=== PATIENT | female | born 1945 | race American Indian/Alaskan Native ===

== ENCOUNTER 2021-01-11 17:34 | Emergency (ER) | payer MEDICARE ==
--- NOTE | 2021-01-11 18:15 | Emergency Department Report ---
Blank Doc - Documentation Documentation: 75-year-old female that presents with hyperglycemia. 1- This initial assessment/diagnostic orders/clinical plan/ treatment(s) is/are subject to change based on pt's health status, clinical progression and re- assessment by fellow clinical providers in the ED. Further treatment and workup at subsequent clinical provers discretion. Patient/guardians urged not to elope from ED as their condition may be serious if not clinically assessed and managed. 2-labs 3-UA
[2021-01-11 18:33] LABS: Basophils # (Auto) 0.1 K/mm3 (0.0-0.1); Basophils % (Auto) 0.8 % (0.0-1.8); Eosinophils # (Auto) 0.1 K/mm3 (0.0-0.4); Eosinophils % (Auto) 1.2 % (0.0-4.3); Hematocrit 38.8 % (30.3-42.9); Hemoglobin 12.9 gm/dl (10.1-14.3); Lymphocytes # (Auto) 1.6 K/mm3 (1.2-5.4); Lymphocytes % (Auto) 24.8 % (13.4-35.0); Mean Corpuscular HGB Conc 33 % (30-34); Mean Corpuscular Volume 92 fl (79-97); Monocytes # (Auto) 0.5 K/mm3 (0.0-0.8); Monocytes % (Auto) 8.4 % (0.0-7.3); Platelet Count 168 K/mm3 (140-440); Red Blood Count 4.24 M/mm3 (3.65-5.03); Red Cell Distribution Width 13.2 % (13.2-15.2)
[2021-01-11 18:54] LABS: Calcium 9.5 mg/dL (8.4-10.2)
[2021-01-11] MEDS ORDERED: SODIUM CHLORIDE 0.9% 1000 ML 1,000 ML IV ONE (23:11)
[2021-01-11] MEDS ORDERED: INSULIN REGULAR, HUMAN 100 UNITS/1 ML IV ONE (23:12)
[2021-01-11] MEDS ORDERED: cloNIDine 0.1 MG TAB PO ONE (23:14)
--- NOTE | 2021-01-12 01:55 | Emergency Department Report ---
ED General Adult HPI - General Chief complaint: Hyperglycemia Stated complaint: HIGH BLOOD PRESSURE/HIGH SUGAR LEVELS Time Seen by Provider: 01/11/21 18:14 Source: patient, family Mode of arrival: Wheelchair Limitations: No Limitations - History of Present Illness Initial comments: Patient is a 75-year-old F [place] female who is presenting with elevated blood pressure and glucose. Patient saw her primary care physician earlier today and both her blood pressure and sugar were elevated. Patient states she has been taking her blood pressure medications but did not take them this morning because she was fasting. States she does take insulin. She has been urinating quite frequently with no dysuria. She denies any chest pain cough cold congestion fevers chills nausea vomiting diarrhea focal neurological deficits. Patient states she feels fine but her primary care physician was worried because her blood glucose was over 400 and her systolic blood pressure was over 200. Severity scale (0 -10): 0 - Related Data Allergies Allergy/AdvReac Type Severity Reaction Status Date / Time No Known Allergies Allergy Unverified 01/11/21 18:00 ED Review of Systems ROS: Stated complaint: HIGH BLOOD PRESSURE/HIGH SUGAR LEVELS Other details as noted in HPI Comment: All other systems reviewed and negative ED Past Medical Hx - Past Medical History Hx Hypertension: Yes Hx Diabetes: Yes Hx Renal Disease: Yes (NO DIALYSIS) - Surgical History Past Surgical History?: No - Social History Smoking Status: Never Smoker Substance Use Type: None ED Physical Exam - General Limitations: No Limitations General appearance: alert, in no apparent distress - Head Head exam: Present: atraumatic, normocephalic - Eye Eye exam: Present: normal appearance - ENT ENT exam: Present: mucous membranes moist - Neck Neck exam: Present: normal inspection - Respiratory Respiratory exam: Present: normal lung sounds bilaterally. Absent: respiratory distress, wheezes, rales, rhonchi - Cardiovascular Cardiovascular Exam: Present: regular rate, normal rhythm, normal heart sounds. Absent: systolic murmur, diastolic murmur, rubs, gallop - GI/Abdominal GI/Abdominal exam: Present: soft, normal bowel sounds. Absent: distended, tenderness, guarding, rebound - Extremities Exam Extremities exam: Present: normal inspection - Back Exam Back exam: Present: normal inspection - Neurological Exam Neurological exam: Present: alert, oriented X3 - Psychiatric Psychiatric exam: Present: normal affect, normal mood - Skin Skin exam: Present: warm, dry, intact, normal color. Absent: rash ED Course Vital Signs 01/11/21 01/11/21 01/11/21 18:03 18:04 22:59 Temperature 98.7 F 97 F L Pulse Rate 61 62 63 Respiratory 22 18 15 Rate Blood Pressure 212/80 Blood Pressure 212/80 [Right] O2 Sat by Pulse 99 100 100 Oximetry 01/11/21 01/11/21 01/11/21 23:00 23:15 23:27 Temperature Pulse Rate 60 61 65 Respiratory 15 13 12 Rate Blood Pressure 160/94 160/94 259/99 Blood Pressure [Right] O2 Sat by Pulse 99 99 100 Oximetry 01/11/21 01/11/21 01/12/21 23:31 23:45 00:01 Temperature Pulse Rate 62 68 66 Respiratory 13 14 15 Rate Blood Pressure 224/94 224/94 215/86 Blood Pressure [Right] O2 Sat by Pulse 97 98 98 Oximetry 01/12/21 01/12/21 01/12/21 00:15 00:31 00:45 Temperature Pulse Rate 66 64 60 Respiratory 17 16 13 Rate Blood Pressure 215/86 167/87 167/87 Blood Pressure [Right] O2 Sat by Pulse 97 99 97 Oximetry 01/12/21 01/12/21 01:01 01:15 Temperature Pulse Rate 56 L 53 L Respiratory 18 13 Rate Blood Pressure 179/70 183/72 Blood Pressure [Right] O2 Sat by Pulse 99 99 Oximetry ED Medical Decision Making - Lab Data Result diagrams: 01/11/21 18:19 01/11/21 18:19 Lab Results 01/11/21 01/11/21 01/11/21 Range/Units 18:03 18:19 18:19 WBC 6.4 (4.5-11.0) K/mm3 RBC 4.24 (3.65-5.03) M/mm3 Hgb 12.9 (10.1-14.3) gm/dl Hct 38.8 (30.3-42.9) % MCV 92 (79-97) fl MCH 30 (28-32) pg MCHC 33 (30-34) % RDW 13.2 (13.2-15.2) % Plt Count 168 (140-440) K/mm3 Lymph % (Auto) 24.8 (13.4-35.0) % [place] % (Auto) 8.4 H (0.0-7.3) % Eos % (Auto) 1.2 (0.0-4.3) % Baso % (Auto) 0.8 (0.0-1.8) % Lymph # (Auto) 1.6 (1.2-5.4) K/mm3 [place] # (Auto) 0.5 (0.0-0.8) K/mm3 Eos # (Auto) 0.1 (0.0-0.4) K/mm3 Baso # (Auto) 0.1 (0.0-0.1) K/mm3 Seg Neutrophils % 64.8 (40.0-70.0) % Seg Neutrophils # 4.2 (1.8-7.7) K/mm3 VBG pH (7.320-7.420) Sodium 133 L (137-145) mmol/L Potassium 4.6 (3.6-5.0) mmol/L Chloride 98.6 (98-107) mmol/L Carbon Dioxide 25 (22-30) mmol/L Anion Gap 14 mmol/L BUN 29 H (7-17) mg/dL Creatinine 1.3 H (0.6-1.2) mg/dL Estimated GFR 48 ml/min BUN/Creatinine Ratio 22 % Glucose 458 H (65-100) mg/dL POC Glucose 472 H (70-105) mg/dL Calcium 9.5 (8.4-10.2) mg/dL 01/11/21 Range/Units 18:19 WBC (4.5-11.0) K/mm3 RBC (3.65-5.03) M/mm3 Hgb (10.1-14.3) gm/dl Hct (30.3-42.9) % MCV (79-97) fl MCH (28-32) pg MCHC (30-34) % RDW (13.2-15.2) % Plt Count (140-440) K/mm3 Lymph % (Auto) (13.4-35.0) % [place] % (Auto) (0.0-7.3) % Eos % (Auto) (0.0-4.3) % Baso % (Auto) (0.0-1.8) % Lymph # (Auto) (1.2-5.4) K/mm3 [place] # (Auto) (0.0-0.8) K/mm3 Eos # (Auto) (0.0-0.4) K/mm3 Baso # (Auto) (0.0-0.1) K/mm3 Seg Neutrophils % (40.0-70.0) % Seg Neutrophils # (1.8-7.7) K/mm3 VBG pH 7.410 (7.320-7.420) Sodium (137-145) mmol/L Potassium (3.6-5.0) mmol/L Chloride (98-107) mmol/L Carbon Dioxide (22-30) mmol/L Anion Gap mmol/L BUN (7-17) mg/dL Creatinine (0.6-1.2) mg/dL Estimated GFR ml/min BUN/Creatinine Ratio % Glucose (65-100) mg/dL POC Glucose (70-105) mg/dL Calcium (8.4-10.2) mg/dL - Medical Decision Making Patient blood pressure is starting to decrease spontaneously and dropped to the 160s. No further intervention will be done regarding the blood pressure. She has no signs or symptoms of endorgan damage. Patient glucose was elevated to the 450 range. She is not acidotic. She was given a liter of fluid dose of insulin and blood glucose is starting to decrease. Patient be discharged home. Critical care attestation.: If time is entered above; I have spent that time in minutes in the direct care of this critically ill patient, excluding procedure time. ED Disposition Clinical Impression: Hypertensive urgency, Hyperglycemia, Mild dehydration Disposition: - TO HOME OR SELFCARE Is pt being admited?: No Does the pt Need Aspirin: No Condition: Stable Instructions: Hyperglycemia, Preventing Hypertension Referrals: RUSSELL GROSS MD [Primary Care Provider] - 3-5 Days Time of Disposition: 01:56
[2021-01-12 02:20] VITALS: BP 168/65
== END 2021-01-12 02:20 | disposition home or self-care (01) ==
LOC: ED 17:34
DX: E11.65 Type 2 diabetes mellitus with hyperglycemia (principal); I16.0 Hypertensive urgency; E86.0 Dehydration
CPT/HCPCS: 36415; 80048; 82805; 82962; 85025; 96361; 96374; 99283; J7030; 99282; J1815

== ENCOUNTER 2021-11-19 23:01 | Emergency (ER) | payer SELFPAY ==
--- NOTE | 2021-11-19 23:29 | Emergency Department Report ---
ED CPR HPI - General Chief Complaint: Cardiac Arrest/CPR Stated Complaint: CARIAC ARREST Time Seen by Provider: 11/19/21 23:23 Source: patient Mode of arrival: Ambulatory Limitations: No Limitations - History of Present Illness Initial Comments: Patient is 76 years old morbidly obese female with history of congestive heart failure, hypertension, diabetes, asthma, chronic kidney disease and lymphedema. Patient brought to the emergency room via EMS from home in a full cardiac arrest, CPR in progress. EMS stated that patient was found in her bathroom. ACLS protocol immediately started by EMS. Patient found to be in asystole. Upon arrival to the ER, patient found to be in asystole. Pupils are 5 mm fixed and dilated. EMS stated that patient has been in asystole for 30 minutes. Patient pronounced at 11:04 PM. No family available at this moment. - Related Data Allergies Allergy/AdvReac Type Severity Reaction Status Date / Time No Known Allergies Allergy Unverified 01/11/21 18:00 ED Review of Systems ROS: Stated complaint: CARIAC ARREST Other details as noted in HPI Comment: Unobtainable due to pts medical conditions ED Past Medical Hx - Past Medical History Previous Medical History?: Yes Hx Hypertension: Yes Hx CVA: No Hx Congestive Heart Failure: Yes Hx Diabetes: Yes Hx Deep Vein Thrombosis: No Hx Renal Disease: Yes (NO DIALYSIS) Hx Arthritis: Yes Hx Seizures: No Hx Asthma: Yes - Surgical History Past Surgical History?: No - Social History Smoking Status: Never Smoker Substance Use Type: None ED Physical Exam - General Limitations: No Limitations General appearance: other (CPR in progress) - Eye Pupils: Present: other (Pupils are 5 mm fixed and dilated) - Respiratory Respiratory exam: Present: other (No spontaneous breathing.) - Cardiovascular Cardiovascular Exam: Present: other (No spontaneous heart tones.) - GI/Abdominal GI/Abdominal exam: Present: soft - Extremities Exam Extremities exam: Present: pedal edema - Neurological Exam Neurological exam: Present: other (CPR in progress.) Critical Care Time: Yes Critical care time in (mins) excluding proc time.: 35 Critical care attestation.: If time is entered above; I have spent that time in minutes in the direct care of this critically ill patient, excluding procedure time. ED Disposition Clinical Impression: Cardiopulmonary arrest Disposition: 20 Is pt being admited?: No Condition: Stable
== END 2021-11-20 02:35 ==
LOC: ED 23:01
DX: I46.9 Cardiac arrest, cause unspecified (principal); I11.0 Hypertensive heart disease with heart failure; I50.9 Heart failure, unspecified; E11.9 Type 2 diabetes mellitus without complications; M19.90 Unspecified osteoarthritis, unspecified site
CPT/HCPCS: 92950